=== PATIENT | female | born 1985 | race Caucasian/White ===

== ENCOUNTER 2016-12-30 18:43 | Emergency (ER) | payer SELFPAY ==
[~2016-12-30] VITALS: Ht 157.5 cm; Wt 72.6 kg
[~2016-12-30 18:43] MED LIST: CYCL10TA2 PO; HYDR-2758 PO; HYDR-971 PO; NAPR550T PO; TRAM1TAB4 PO
[2016-12-30] MEDS ORDERED: ONDANSETRON PF 4 MG/2 ML VIAL. IV ONE (19:15)
[2016-12-30] MEDS ORDERED: fentaNYL PF VIAL 100 MCG/2 ML VIAL IV ONE (19:15)
[2016-12-30] MEDS ORDERED: IV NORMAL SALINE 1000ML BAG 1,000 ML IV ONE (19:15)
[2016-12-30 19:20] LABS: BASO # 0.1 x10^3/uL (0.0-0.2); BASO % 1 % (0-3); EOS % 0 % (0-3); HEMATOCRIT 42.4 % (36.0-47.0); HEMOGLOBIN 14.8 g/dL (12.0-15.5); LYMPH % 4 % (24-48); MEAN CORPUSCULAR HEMOGLOBIN 31 pg (25-35); MEAN CORPUSCULAR HGB CONC 35 g/dL (31-37); MEAN CORPUSCULAR VOLUME 88 fL (79-100); MONO % 5 % (0-9); NEUT % 90 % (31-73); PLATELET COUNT 204 x10^3/uL (140-400); RED BLOOD COUNT 4.81 x10^6/uL (3.50-5.40); RED CELL DISTRIBUTION WIDTH 13.6 % (11.5-14.5); WHITE BLOOD COUNT 23.3 x10^3/uL (4.0-11.0)
[2016-12-30 19:21] LABS: BILIRUBIN,URINE SMALL (NEG); GLUCOSE,URINE NEGATIVE (NEG); NITRITE,URINE NEGATIVE (NEG); PROTEIN,URINE NEGATIVE (NEG-TRACE)
[2016-12-30 19:30] LABS: CALCIUM 9.1 mg/dL (8.5-10.1); CREATININE 0.9 mg/dL (0.6-1.0); GFR 73.5; POTASSIUM 3.6 mmol/L (3.5-5.1)
[2016-12-30 19:32] LABS: BACTERIA,URINE FEW /HPF (0-FEW); SQUAMOUS EPITHELIAL CELL,UR MANY /LPF; WBC,URINE >40 /HPF (0-4)
--- NOTE | 2016-12-30 19:38 | PHYS DOC ---
Past Medical History Past Medical History: Anxiety, Other Additional Past Medical Histor: nerve problem in arm, "sciatica" Past Surgical History: Other Additional Past Surgical Histo: great toes ingrown toenails Alcohol Use: Occasionally Drug Use: Marijuana Social History Narrative: denies 12/30/16 Adult General Chief Complaint Chief Complaint: ABDOMINAL PAIN HPI HPI 31-year-old female presenting to the emergency department with epigastric abdominal pain for the past 6-8 hours. She describes the pain as a sharp pain that radiates across bilaterally. The pain is moderate intermittent and without alleviating factors. She denies being . She states she is currently on her menstrual period. She has nausea without vomiting. She denies fevers or chills. Review of systems is negative for chest pain shortness of breath fevers chills vomiting dark stools. She denies changes in vaginal discharge, polyuria or dysuria. All other review of systems is negative unless otherwise noted in history of present illness. ED course: 31-year-old female presenting to the emergency department today with epigastric abdominal pain. Vital signs showed the patient to be tachycardic without a fever here. Patient's heart rate was initially recorded at 121, however even after being in the emergency room for 15-20 minutes the patient's heart rate came down to approximately 80 bpm without any intervention. Pertinent physical exam findings showed mild tenderness in the right lower quadrant without rebound tenderness or guarding. Equivocal McBurney's point. Negative Bey sign. Patient was given IV fluids nausea and pain medication. On reexamination , the patient was feeling much better. Vaginal exam was performed in the presence of female nurse which showed a normal cervix without cervical motion tenderness. No adnexal masses present. Microbiology shows clue cells suggestive of bacterial vaginosis. The patient's urinalysis suggestive of a possible urinary tract infection. The patient was noted to have a significantly large splenic cyst which I we will refer the patient on to one of our general surgeons to be evaluated for along with her primary care physician. She was in discharged home in stable condition. The patient was then discharged home in stable condition to follow up with their primary care physician over the next 2-3 days. They were to return if their symptoms worsened or if they were concerned for any reason. [id number] discharge instructions and return precautions were given. Patient's questions were answered to their satisfaction. Patient is comfortable plan. Review of Systems Review of Systems SEE ABOVE. Current Medications Current Medications Current Medications Medications (Trade) Dose Ordered Sig/Alise Start Time Stop Time Status Last Admin Dose Admin Fentanyl Citrate (Fentanyl 2ml Vial) 25 mcg 1X ONCE 12/30/16 19:15 12/30/16 19:16 DC 12/30/16 19:28 25 MCG Info (Do NOT chart on this entry -- for MONITORING) 1 each PRN DAILY PRN 12/30/16 20:00 01/01/17 19:59 Iohexol (Omnipaque 300 Mg/ml) 75 ml 1X ONCE 12/30/16 20:00 12/30/16 20:01 DC 12/30/16 20:13 75 ML Ondansetron HCl (Zofran) 4 mg 1X ONCE 12/30/16 19:15 12/30/16 19:16 DC 12/30/16 19:26 4 MG Sodium Chloride 1,000 ml @ 1,000 mls/hr 1X ONCE 12/30/16 19:15 12/30/16 20:14 DC 12/30/16 19:26 1,000 MLS/HR Allergies Allergies Allergies Coded Allergies Type Severity Reaction Last Updated Verified No Known Drug Allergies 05/23/16 No Physical Exam Physical Exam SEE ABOVE Constitutional: Well developed, well nourished, no acute distress, non-toxic appearance. [] HENT: Normocephalic, atraumatic, bilateral external ears normal, oropharynx moist, no oral exudates, nose normal. [] Eyes: PERRLA, EOMI, conjunctiva normal, no discharge. [] Neck: Normal range of motion, no tenderness, supple, no stridor. [] Cardiovascular:Heart rate regular rhythm, no murmur [] Lungs & Thorax: Bilateral breath sounds clear to auscultation [] Abdomen: SEE ABOVE Skin: Warm, dry, no erythema, no rash. [] Back: No tenderness, no CVA tenderness. [] Extremities: No tenderness, no cyanosis, no clubbing, ROM intact, no edema. [] Neurologic: Alert and oriented X 3, normal motor function, normal sensory function, no focal deficits noted. [] Psychologic: Affect normal, judgement normal, mood normal. [] Current Patient Data Vital Signs Vital Signs Date Time Temp Pulse Resp B/P (MAP) Pulse Ox O2 Delivery O2 Flow Rate FiO2 7/16/17 20:30 88 18 105/53 (70) 95 Room Air 12/30/16 18:50 98.9 98.9 Lab Values Laboratory Tests Test 12/30/16 17:58 12/30/16 18:50 12/30/16 18:53 POC Urine HCG, Qualitative Hcg negative (Negative) Urine Collection Type Void Urine Color Dk yellow Urine Clarity Clear Urine pH 7.0 Urine Specific Chal[place] >=1.030 Urine Protein Negative mg/dL (NEG-TRACE) Urine Glucose (UA) Negative mg/dL (NEG) Urine Ketones (Stick) 15 mg/dL (NEG) Urine Blood Large (NEG) Urine Nitrite Negative (NEG) Urine Bilirubin Small (NEG) Urine Urobilinogen Dipstick 1.0 mg/dL (0.2 mg/dL) Urine Leukocyte Esterase Moderate (NEG) Urine RBC 1-2 /HPF (0-2) Urine WBC >40 /HPF (0-4) Urine Squamous Epithelial Cells Many /LPF Urine Bacteria Few /HPF (0-FEW) Urine Mucus Marked /LPF White Blood Count 23.3 x10^3/uL (4.0-11.0) H Red Blood Count 4.81 x10^6/uL (3.50-5.40) Hemoglobin 14.8 g/dL (12.0-15.5) Hematocrit 42.4 % (36.0-47.0) Mean Corpuscular Volume 88 fL (79-100) Mean Corpuscular Hemoglobin 31 pg (25-35) Mean Corpuscular Hemoglobin Concent 35 g/dL (31-37) Red Cell Distribution Width 13.6 % (11.5-14.5) Platelet Count 204 x10^3/uL (140-400) Neutrophils (%) (Auto) 90 % (31-73) H Lymphocytes (%) (Auto) 4 % (24-48) L Monocytes (%) (Auto) 5 % (0-9) Eosinophils (%) (Auto) 0 % (0-3) Basophils (%) (Auto) 1 % (0-3) Neutrophils # (Auto) 21.0 x10^3uL (1.8-7.7) H Lymphocytes # (Auto) 1.0 x10^3/uL (1.0-4.8) Monocytes # (Auto) 1.2 x10^3/uL (0.0-1.1) H Eosinophils # (Auto) 0.1 x10^3/uL (0.0-0.7) Basophils # (Auto) 0.1 x10^3/uL (0.0-0.2) Segmented Neutrophils % 75 % (35-66) H Band Neutrophils % 12 % (0-9) H Lymphocytes % 5 % (24-48) L Monocytes % 7 % (0-10) Basophils % 1 % (0-3) Toxic Granulation Slight Platelet Estimate Adequate (ADEQUATE) Sodium Level 144 mmol/L (136-145) Potassium Level 3.6 mmol/L (3.5-5.1) Chloride Level 108 mmol/L (98-107) H Carbon Dioxide Level 26 mmol/L (21-32) Anion Gap 10 (6-14) Blood Urea Nitrogen 9 mg/dL (7-20) Creatinine 0.9 mg/dL (0.6-1.0) Estimated GFR (Cockcroft-Gault) 73.5 BUN/Creatinine Ratio 10 (6-20) Glucose Level 103 mg/dL (70-99) H Calcium Level 9.1 mg/dL (8.5-10.1) Total Bilirubin 1.0 mg/dL (0.2-1.0) Aspartate Amino Transferase (AST) 17 U/L (15-37) Alanine Aminotransferase (ALT) 15 U/L (14-59) Alkaline Phosphatase 102 U/L (46-116) Total Protein 7.3 g/dL (6.4-8.2) Albumin 4.1 g/dL (3.4-5.0) Albumin/Globulin Ratio 1.3 (1.0-1.7) Lipase 82 U/L (73-393) Laboratory Tests 12/30/16 18:53 Laboratory Tests 12/30/16 18:53 Microbiology 12/30/16 Wet Prep - Final, Complete EKG EKG [] Radiology/Procedures Radiology/Procedures [] Course & Med Decision Making Course & Med Decision Making Pertinent Labs and Imaging studies reviewed. (See chart for details) [] Dragon Disclaimer Dragon Disclaimer This electronic medical record was generated, in whole or in part, using a voice recognition dictation system. Departure Departure Impression: Primary Impression: Abdominal pain Additional Impressions: Splenic cyst Urinary tract infection Bacterial vaginosis Disposition: HOME, SELF-CARE Condition: STABLE Referrals: RADHA CLIFTON MD (PCP) YAMINI STATON MD Patient Instructions: Abdominal Pain Additional Instructions: Thank you for allowing us to participate in your care today. Followup with your primary care physician in 3 days if your symptoms do not improve. Call your Primary Doctor tomorrow and inform them of your visit today. If you do not have a primary care provider you can ask for a list of our primary care providers. Return to the emergency department you have any new or concerning findings. This should be evaluated by the primary care physician and any necessary consulting services for continued management within a few days after discharge. Return to emergency room if you have any new or concerning symptoms including but not limited to fever, chills, nausea, vomiting, intractable pain, any new rashes, chest pain, shortness of air, uncontrolled bleeding, difficulty breathing, and/or vision loss. You may have been prescribed medication that can change in your level of thinking and ability to operate machinery. These medications include hydrocodone and Ativan. Also, Benadryl has been known to do this as well. Be sure to check with your pharmacist and ask if the medications you've prescribed can affect your level of consciousness. I recommend not operating heavy machinery or driving while on medication such as these. Scripts Hydrocodone Bit/Acetaminophen (HYDROCODONE-APAP 5-325 ) 1 Each Tablet 1 TAB PO PRN Q6HRS Y for PAIN, #8 TAB 0 Refills Be careful as this medication may cause you to be drowsy or tired. Do not drive on this medication. Prov: CARLIN DOAN MD 12/30/16 Metronidazole (FLAGYL) 500 Mg Tablet 1 TAB PO BID, #14 TAB Prov: CARLIN DOAN MD 12/30/16 Nitrofurantoin Monohyd/M-Cryst (MACROBID 100 MG CAPSULE) 100 Mg Capsule 1 CAP PO BID, #10 CAP Prov: CARLIN DOAN MD 12/30/16 Problem Qualifiers CARLIN DOAN MD Dec 30, 2016 19:38
[2016-12-30 19:45] LABS: % BASOS 1 % (0-3)
[2016-12-30 19:46] LABS: PLT ESTIMATE ADEQUATE (ADEQUATE); TOXIC GRANULATION SLIGHT
[2016-12-30 19:47] LABS: ALBUMIN 4.1 g/dL (3.4-5.0); ALBUMIN/GLOBULIN RATIO 1.3 (1.0-1.7); TOTAL PROTEIN 7.3 g/dL (6.4-8.2)
[2016-12-30] MEDS ORDERED: IOHEXOL 300 MG/ML 75 ML VIAL IV ONE (20:00)
[2016-12-30] MEDS ORDERED: CONTRAST GIVEN MC PRN (20:00)
--- NOTE | 2016-12-30 20:21 | RAD ---
CT abdomen and pelvis with contrast History: Abdominal pain for one day Technique: After the administration of intravenous contrast, CT imaging was performed of the abdomen and pelvis. No oral contrast was given as per request. Multiplanar images are reviewed. Exposure: One or more of the following individualized dose reduction techniques were utilized for this examination: 1. Automated exposure control 2. Adjustment of the mA and/or kV according to patient size 3. Use of iterative reconstruction technique. Contrast: 75 cc Omnipaque 300 Comparison: None Findings: There is no significant abnormality of the visualized lung bases. There is a large 7.6 cm cyst of the spleen, separate smaller hypodense focus 2.1 cm with more complex density measurements 45 Hounsfield units. Another small hypodense lesion just inferiorly also has density characteristics of a cyst. No focal abnormality is identified of the pancreas, liver, gallbladder, adrenal glands. Accurate evaluation of bowel is limited without oral contrast. There is no significant inflammatory change adjacent to the bowel. There is appearance of relative small bowel wall thickening in the left abdomen. There is no evidence of bowel obstruction, free fluid, or free air. Normal appendix is visualized without adjacent inflammatory change. There is IUD present. The bladder has a normal configuration. There is no significant lymphadenopathy. No significant osseous abnormality is identified. Impression: 1. There is no evidence of acute appendicitis. There is appearance of relative wall thickening of small bowel in the left abdomen which could be due to enteritis. 2. There is a large cyst of the spleen, separate smaller hypodense lesion which is indeterminate although may be due to a complex cyst given the larger more simple appearing cyst. Electronically signed by: Quan Lugo MD (12/30/2016 8:17 PM) [facility]
[2016-12-30 20:30] VITALS: BP 105/53
[2016-12-30] MEDS ORDERED: HYDR-2758 PO (20:41)
[2016-12-30] MEDS ORDERED: METR500T PO (20:41)
[2016-12-30] MEDS ORDERED: NITR100C62 PO (20:41)
== END 2016-12-30 20:55 | disposition home or self-care (01) ==
LOC: ER 18:43
DX: D73.4 Cyst of spleen (principal); N39.0 Urinary tract infection, site not specified; N76.0 Acute vaginitis; F41.9 Anxiety disorder, unspecified; F12.10 Cannabis abuse, uncomplicated
CPT/HCPCS: 36415; 74177; 80053; 81001; 81025; 83690; 85007; 85027; 87491; 87591; 96361; 96374; 96375; 99285; J2405; J3010; J7030; Q0111; Q9967

== ENCOUNTER 2017-05-01 18:28 | Emergency (ER) | payer SELFPAY ==
[~2017-05-01] VITALS: Ht 157.5 cm; Wt 72.6 kg
[~2017-05-01 18:28] MED LIST changes: +METR500T PO; +NAPR-682 PO; -NAPR550T PO; +NITR100C62 PO
[2017-05-01 18:43] VITALS: BP 135/82
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
[2017-05-01] MEDS ORDERED: NEOMY/BACITR/POLYMYXIN OINT PACKET. TP ONE (19:00)
== END 2017-05-01 19:12 | disposition home or self-care (01) ==
LOC: ER 18:28
DX: S81.811A Laceration without foreign body, right lower leg, initial encounter (principal); F41.9 Anxiety disorder, unspecified; F12.10 Cannabis abuse, uncomplicated; Y08.09XA Assault by strike by other specified type of sport equipment, initial encounter; Y93.89 Activity, other specified; Y99.8 Other external cause status; Y92.89 Other specified places as the place of occurrence of the external cause
CPT/HCPCS: 99283

== ENCOUNTER 2017-09-08 18:31 | Emergency (ER) | payer OTHER ==
[2017-09-08] MEDS: ONDANSETRON PF 4 MG/2 ML VIAL. IV (20:25)
[2017-09-08] MEDS: fentaNYL PF VIAL 100 MCG/2 ML VIAL IV (20:25)
[2017-09-08] MEDS: IV NORMAL SALINE 1000ML BAG 1,000 ML IV (20:25)
[2017-09-08 20:27] LABS: ADD MAN DIFF? NO
[2017-09-08 20:31] LABS: BASO % 0 % (0-3); EOS # 0.1 x10^3/uL (0.0-0.7); EOS % 1 % (0-3); HEMATOCRIT 49.5 % (36.0-47.0); LYMPH # 1.4 x10^3/uL (1.0-4.8); LYMPH % 14 % (24-48); MEAN CORPUSCULAR HEMOGLOBIN 31 pg (25-35); MEAN CORPUSCULAR HGB CONC 34 g/dL (31-37); MEAN CORPUSCULAR VOLUME 91 fL (79-100); MONO # 0.5 x10^3/uL (0.0-1.1); MONO % 5 % (0-9); NEUT # 8.1 x10^3uL (1.8-7.7); NEUT % 80 % (31-73); PLATELET COUNT 231 x10^3/uL (140-400); RED BLOOD COUNT 5.44 x10^6/uL (3.50-5.40)
[2017-09-08 20:42] LABS: ANION GAP 12 (6-14); BLOOD UREA NITROGEN 10 mg/dL (7-20); BUN/CREATININE RATIO 13 (6-20); CALCIUM 9.7 mg/dL (8.5-10.1); CARBON DIOXIDE 27 mmol/L (21-32); CHLORIDE 101 mmol/L (98-107); CREATININE 0.8 mg/dL (0.6-1.0); GFR 83.7; GLUCOSE 93 mg/dL (70-99); POTASSIUM 3.6 mmol/L (3.5-5.1); SODIUM 140 mmol/L (136-145)
[2017-09-08 20:48] LABS: ALBUMIN 4.3 g/dL (3.4-5.0); ALBUMIN/GLOBULIN RATIO 1.1 (1.0-1.7); ALK PHOS 107 U/L (46-116); ALT (SGPT) 18 U/L (14-59); AST (SGOT) 16 U/L (15-37); LIPASE 107 U/L (73-393); TOTAL BILIRUBIN 0.5 mg/dL (0.2-1.0); TOTAL PROTEIN 8.3 g/dL (6.4-8.2)
== END 2017-09-08 22:24 | disposition home or self-care (01) ==
LOC: ER 18:31
DX: D73.4 Cyst of spleen (principal); F41.9 Anxiety disorder, unspecified; F12.10 Cannabis abuse, uncomplicated
CPT/HCPCS: 36415; 76700; 80053; 83690; 85025; 96361; 96374; 96375; 99285-25; J2405; J3010; J7030

== ENCOUNTER 2020-07-21 07:31 | Emergency (ER) | payer OTHER ==
[~2020-07-21] VITALS: Ht 152.4 cm; Wt 59.0 kg
[~2020-07-21 07:31] MED LIST changes: -HYDR-2758 PO; +HYDR-2761 PO; +HYDR-3164 PO; -HYDR-971 PO
[2020-07-21 07:50] LABS: CLARITY,URINE CLOUDY; COLOR,URINE RED
[2020-07-21 07:58] LABS: BASO # 0.1 x10^3/uL (0.0-0.2); BASO % 1 % (0-3); EOS # 0.3 x10^3/uL (0.0-0.7); EOS % 3 % (0-3); HEMATOCRIT 41.1 % (36.0-47.0); HEMOGLOBIN 13.7 g/dL (12.0-15.5); LYMPH # 1.8 x10^3/uL (1.0-4.8); LYMPH % 21 % (24-48); MEAN CORPUSCULAR HEMOGLOBIN 31 pg (25-35); MEAN CORPUSCULAR HGB CONC 33 g/dL (31-37); MEAN CORPUSCULAR VOLUME 92 fL (79-100); MONO # 0.9 x10^3/uL (0.0-1.1); MONO % 11 % (0-9); NEUT # 5.3 x10^3/uL (1.8-7.7); NEUT % 64 % (31-73); PLATELET COUNT 379 x10^3/uL (140-400); RED BLOOD COUNT 4.47 x10^6/uL (3.50-5.40); RED CELL DISTRIBUTION WIDTH 13.1 % (11.5-14.5); WHITE BLOOD COUNT 8.3 x10^3/uL (4.0-11.0)
[2020-07-21 08:00] LABS: U PREG PATIENT NEGATIVE (NEG)
[2020-07-21 08:05] LABS: BACTERIA,URINE FEW /HPF (0-FEW); RBC,URINE TNTC /HPF (0-2)
[2020-07-21 08:11] LABS: CALCIUM 8.6 mg/dL (8.5-10.1); CREATININE 0.7 mg/dL (0.6-1.0); GFR 96.4; POTASSIUM 4.4 mmol/L (3.5-5.1)
[2020-07-21 08:16] LABS: ALBUMIN 3.2 g/dL (3.4-5.0); ALBUMIN/GLOBULIN RATIO 1.2 (1.0-1.7); TOTAL BILIRUBIN 0.3 mg/dL (0.2-1.0); TOTAL PROTEIN 5.8 g/dL (6.4-8.2)
[2020-07-21] MEDS: KETOROLAC 30 MG/ML VIAL. IVP ONE (08:28)
--- NOTE | 2020-07-21 09:17 | RAD ---
EXAMINATION: US PELVIS W/TV, 07/21/2020 8:23 AM CLINICAL INDICATION: Pelvic pain, vaginal bleeding TECHNIQUE: Grayscale, color and spectral Doppler ultrasound images of the pelvis via transabdominal a nd transvaginal approach. COMPARISON: None. FINDINGS: The uterus measures 8.0 x 5.8 x 4.3 cm. The endometrial stripe measures 6 mm in thickness. No myometr ial mass. The right ovary measures 3.8 x 1.8 x 2.0 cm. The left ovary measures 3.0 x 1.7 x 1.9 cm. Normal color and spectral Doppler blood flow to the ovaries. No ovarian mass. No adnexal mass or free fluid. IMPRESSION: Normal pelvic ultrasound. Electronically signed by: Daksha Forbes MD (07/21/2020 9:15 AM) [id number]
--- NOTE | 2020-07-21 09:25 | PHYS DOC ---
Past Medical History Past Medical History: Anxiety, Other Additional Past Medical Histor: nerve problem in arm, sciatica Past Surgical History: Splenectomy, Other Additional Past Surgical Histo: great toes ingrown toenails Smoking Status: Current Every Day Smoker Alcohol Use: Occasionally Drug Use: Marijuana General Adult EDM: Chief Complaint: VAGINAL BLEEDING HPI: HPI: Patient is a 34-year-old female who was brought here by EMS [facility] due to pelvic pain and vaginal bleeding. Patient says she started her PERIOD 3 days ago, this morning she had more more cramping than normal therefore she called EMS to take her here for evaluation. Patient denies any abdominal pain, no nausea vomiting, no diarrhea. Patient denies any cough or fever. Review of Systems: Review of Systems: Constitutional: Denies fever or chills. [] Eyes: Denies change in visual acuity. [] HENT: Denies nasal congestion or sore throat. [] Respiratory: Denies cough or shortness of breath. [] Cardiovascular: Denies chest pain or edema. [] GI: Denies abdominal pain, nausea, vomiting, bloody stools or diarrhea. [] : Denies dysuria. Positive for pelvic pain and vaginal bleeding. Musculoskeletal: Denies back pain or joint pain. [] Integument: Denies rash. [] Neurologic: Denies headache, focal weakness or sensory changes. [] Endocrine: Denies polyuria or polydipsia. [] Lymphatic: Denies swollen glands. [] Psychiatric: Denies depression or anxiety. [] Heart Score: Risk Factors: Risk Factors: DM, Current or recent (<one month) smoker, HTN, HLP, family history of CAD, obesity. Risk Scores: Score 0 - 3: 2.5% MACE over next 6 weeks - Discharge Home Score 4 - 6: 20.3% MACE over next 6 weeks - Admit for Clinical Observation Score 7 - 10: 72.7% MACE over next 6 weeks - Early Invasive Strategies Current Medications: Current Medications Medications (Trade) Dose Ordered Sig/Alise Start Time Stop Time Status Last Admin Dose Admin Ketorolac Tromethamine (Toradol 30mg Vial) 30 mg 1X ONCE 07/21/20 08:30 07/21/20 08:31 DC 07/21/20 08:28 30 MG Allergies: Allergies: Allergies Coded Allergies Type Severity Reaction Last Updated Verified No Known Drug Allergies 05/23/16 No Physical Exam: PE: Constitutional: Well developed, well nourished, no acute distress, non-toxic appearance. [] HENT: Normocephalic, atraumatic, bilateral external ears normal, oropharynx moist, no oral exudates, nose normal. [] Eyes: PERRLA, EOMI, conjunctiva normal, no discharge. [] Neck: Normal range of motion, no tenderness, supple, no stridor. [] Cardiovascular:Heart rate regular rhythm, no murmur [] Lungs & Thorax: Bilateral breath sounds clear to auscultation [] Abdomen: Bowel sounds normal, soft, no tenderness, no masses, no pulsatile masses. [] Skin: Warm, dry, no erythema, no rash. [] Back: No tenderness, no CVA tenderness. [] Extremities: No tenderness, no cyanosis, no clubbing, ROM intact, no edema. [] Neurologic: Alert and oriented X 3, normal motor function, normal sensory function, no focal deficits noted. [] Psychologic: Affect normal, judgement normal, mood normal. [] Current Patient Data: Labs: Laboratory Tests Test 07/21/20 07:40 07/21/20 07:50 Urine Collection Type Void Urine Color Red Urine Clarity Cloudy Urine pH 6.0 (<5.0-8.0) Urine Specific [place] 1.020 (1.000-1.030) Urine Protein mg/dL (NEG-TRACE) Urine Glucose (UA) mg/dL (NEG) Urine Ketones (Stick) mg/dL (NEG) Urine Blood Large (NEG) Urine Nitrite (NEG) Urine Bilirubin (NEG) Urine Urobilinogen Dipstick mg/dL (0.2 mg/dL) Urine Leukocyte Esterase (NEG) Urine RBC Tntc /HPF (0-2) Urine WBC 1-4 /HPF (0-4) Urine Squamous Epithelial Cells Few /LPF Urine Bacteria Few /HPF (0-FEW) Urine Test Negative (NEG) White Blood Count 8.3 x10^3/uL (4.0-11.0) Red Blood Count 4.47 x10^6/uL (3.50-5.40) Hemoglobin 13.7 g/dL (12.0-15.5) Hematocrit 41.1 % (36.0-47.0) Mean Corpuscular Volume 92 fL (79-100) Mean Corpuscular Hemoglobin 31 pg (25-35) Mean Corpuscular Hemoglobin Concent 33 g/dL (31-37) Red Cell Distribution Width 13.1 % (11.5-14.5) Platelet Count 379 x10^3/uL (140-400) Neutrophils (%) (Auto) 64 % (31-73) Lymphocytes (%) (Auto) 21 % (24-48) L Monocytes (%) (Auto) 11 % (0-9) H Eosinophils (%) (Auto) 3 % (0-3) Basophils (%) (Auto) 1 % (0-3) Neutrophils # (Auto) 5.3 x10^3/uL (1.8-7.7) Lymphocytes # (Auto) 1.8 x10^3/uL (1.0-4.8) Monocytes # (Auto) 0.9 x10^3/uL (0.0-1.1) Eosinophils # (Auto) 0.3 x10^3/uL (0.0-0.7) Basophils # (Auto) 0.1 x10^3/uL (0.0-0.2) Sodium Level 140 mmol/L (136-145) Potassium Level 4.4 mmol/L (3.5-5.1) Chloride Level 107 mmol/L (98-107) Carbon Dioxide Level 26 mmol/L (21-32) Anion Gap 7 (6-14) Blood Urea Nitrogen 10 mg/dL (7-20) Creatinine 0.7 mg/dL (0.6-1.0) Estimated GFR (Cockcroft-Gault) 96.4 BUN/Creatinine Ratio 14 (6-20) Glucose Level 91 mg/dL (70-99) Calcium Level 8.6 mg/dL (8.5-10.1) Total Bilirubin 0.3 mg/dL (0.2-1.0) Aspartate Amino Transferase (AST) 17 U/L (15-37) Alanine Aminotransferase (ALT) 30 U/L (14-59) Alkaline Phosphatase 77 U/L (46-116) Total Protein 5.8 g/dL (6.4-8.2) L Albumin 3.2 g/dL (3.4-5.0) L Albumin/Globulin Ratio 1.2 (1.0-1.7) Laboratory Tests 07/21/20 07:50 Laboratory Tests 07/21/20 07:50 Vital Signs: Vital Signs Date Time Temp Pulse Resp B/P (MAP) Pulse Ox O2 Delivery O2 Flow Rate FiO2 07/21/20 08:20 82 118/82 (94) 100 Room Air 07/21/20 07:32 98.1 16 98.1 EKG: EKG: [] Radiology/Procedures: Radiology/Procedures: [][facility] [address] [place] [address] IMAGING REPORT Signed PATIENT: ALISA ACKERMAN ACCOUNT: [id number] : 1985 LOCATION: ER AGE: 34 SEX: F EXAM STATUS: REG ER ORD. PHYSICIAN: JENNIFER KNIGHT DO REASON: pelvic pain, vaginal bleeding PROCEDURE: PELVIS W/TV EXAMINATION: US PELVIS W/TV, 07/21/2020 8:23 AM CLINICAL INDICATION: Pelvic pain, vaginal bleeding TECHNIQUE: Grayscale, color and spectral Doppler ultrasound images of the pelvis via transabdominal and transvaginal approach. COMPARISON: None. FINDINGS: The uterus measures 8.0 x 5.8 x 4.3 cm. The endometrial stripe measures 6 mm in thickness. No myometrial mass. The right ovary measures 3.8 x 1.8 x 2.0 cm. The left ovary measures 3.0 x 1.7 x 1.9 cm. Normal color and spectral Doppler blood flow to the ovaries. No ovarian mass. No adnexal mass or free fluid. IMPRESSION: Normal pelvic ultrasound. Electronically signed by: Daksha Forbes MD (07/21/2020 9:15 AM) [id number] DICTATED and SIGNED BY: DAKSHA FORBES MD DATE: 07/21/20 [id number] Course & Med Decision Making: Course & Med Decision Making Pertinent Labs and Imaging studies reviewed. (See chart for details) Patient is a 34-year-old female who was brought here by EMS from the [facility] due to pelvic pain and vaginal bleeding. Patient says she started her PERIOD 3 days ago, this morning she had more more cramping than normal therefore she called EMS to take her here for evaluation. Her lab work was normal, ultrasound of the pelvis did not show any acute problem. Patient IS most likely has dysmenorrhea. Charly Disclaimer: Charly Disclaimer: This electronic medical record was generated, in whole or in part, using a voice recognition dictation system. Departure Departure Impression: Primary Impression: Dysmenorrhea Disposition: 01 DC HOME SELF CARE/HOMELESS Condition: IMPROVED Referrals: NO PCP (PCP) OSCAR WALLER MD Please call this [facility] doctor for follow up . Patient Instructions: Dysmenorrhea Scripts Naproxen (NAPROXEN) 500 Mg Tablet 1 TAB PO BID for pain for 30 Days, #60 TAB 0 Refills Prov: JENNIFER KNIGHT DO 07/21/20 JENNIFER KNIGHT DO Jul 21, 2020 09:25
[2020-07-21 09:46] VITALS: BP 103/51
[2020-07-21] MEDS ORDERED: NAPR-514 PO (09:54)
== END 2020-07-21 10:05 | disposition home or self-care (01) ==
LOC: ER 07:31
DX: N94.6 Dysmenorrhea, unspecified (principal); Z90.81 Acquired absence of spleen; F17.200 Nicotine dependence, unspecified, uncomplicated
CPT/HCPCS: 36415; 76830; 76856; 80053; 81001; 81025; 85025; 96374; 99284; J1885